=== PATIENT | male | born 1990 | race African-American/Black ===

== ENCOUNTER 2016-11-23 22:37 | Emergency (ER) | payer MEDICAID, SELFPAY ==
[2016-11-23] MEDS ORDERED: Ondansetron ODT 4 MG TAB ONE (22:50)
== END 2016-11-23 23:04 | disposition home or self-care (01) ==
LOC: BURERS 22:37
DX: A08.4 Viral intestinal infection, unspecified (principal)
CPT/HCPCS: 99283; Q0162

== ENCOUNTER 2018-02-11 22:57 | Emergency (ER) | payer BC, SELFPAY | END 2018-02-11 23:25 | disposition home or self-care (01) | LOC: BURERS 22:57 | DX: J01.90 Acute sinusitis, unspecified (principal) | CPT/HCPCS: 99283 ==

== ENCOUNTER 2018-04-06 18:59 | Emergency (ER) | payer BC ==
[2018-04-06] MEDS ORDERED: Ondansetron ODT 4 MG TAB ONE (19:34)
== END 2018-04-06 19:40 | disposition home or self-care (01) ==
LOC: BURERS 18:59
DX: R11.2 Nausea with vomiting, unspecified (principal)
CPT/HCPCS: 99283; Q0162